=== PATIENT | male | born 1945 | race Caucasian/White ===

== ENCOUNTER → 2017-11-22 | Day surgery (SDC) | payer OTHER ==
[~2017-11-22] VITALS: Ht 177.8 cm; Wt 83.9 kg
--- NOTE | 2017-11-22 12:00 | Operative Report ---
Operative/Inv Procedure Report Surgery Date: 11/22/17 Name of Procedure: Robotic assisted laparoscopic bilateral inguinal hernia repair Pre-Operative Diagnosis: Right inguinal hernia Post-Operative Diagnosis: Bilateral inguinal hernia Estimated Blood Loss: scant Surgeon/Lace Pinner: Cruz LEDEZMA,Ramos Portillo/Tyrone PANIAGUA Anesthesia: general endotracheal tube Implants: Pariah [employer] construction inspector Operative/Procedure Note Note: After consent patient brought to the operating room laid supine. General anesthesia was obtained and his abdomen was prepped and draped. Skin was observed local anesthesia at Martinez's point and a transverse incision made sharply. Access the peritoneum was gained percutaneously using an 8 mm optical trocar. Pneumoperitoneum was achieved. 2 more 8 mm ports were placed under direct vision in the transverse plane. The patient is placed in Trendelenburg, robot docked, targeted and instruments placed under direct vision. I then broke scrub and went to the console. The abdomen was explored. There is a large indirect hernia on the right side. There is a previously undiscovered direct hernia on the left side. I elected to repair both starting on the right side. I then developed a preperitoneal flap by taking down the peritoneum just superior to the defect. We then developed the preperitoneal plane with scissor cautery. Medially we dissected down to the pubic tubercle and freed up to René's ligament. There is a large indirect hernia sac which was dissected free from the cord structures along with a large cord lipoma. The structures then dissected inferiorly to accept a large piece of mesh. We dissected medially across the symphysis pubis. Then turned my attention to the left side and created a flap in a similar fashion. There is a diminutive indirect hernia with associated cord lipoma. There was also moderate sized direct hernia which was delivered and reflected inferiorly. Dissection was carried forth as previously described. Once I was happy with the dissection, 2- 10 x 15 cm pieces of parietex pro highway construction inspector was placed in the cavity. Mesh was placed over the defects and unraveled and self adhered to the fascial tissues. Once I was happy with the placement of mesh the peritoneal flaps were closed with a running absorbable 2-0V lock suture. Sutures then removed and passed off the field. The ports were delivered and passed off the field. Skin incisions closed with 4-0 Vicryl. Steri-Strips and sterile dressing are applied. Sponge and needle counts are correct. Findings: Indirect right side, direct left CC: Shanell LEDEZMA,Oswaldo Proctor
== END ==
LOC: STS 03:45
DX: K40.20 Bilateral inguinal hernia, without obstruction or gangrene, not specified as recurrent (principal); I44.7 Left bundle-branch block, unspecified; I10 Essential (primary) hypertension
CPT/HCPCS: 36415; C9290; J0131; J0690; J2250; J3490